=== PATIENT | male | born 1930 | race Caucasian/White ===

== ENCOUNTER 2017-12-02 12:52 | Inpatient (IN) | payer OTHER, MEDICARE ==
[~2017-12-02] VITALS: Ht 190.5 cm; Wt 89.0 kg
--- NOTE | ~2017-12-02 | H ---
[facility] [place] [address] HISTORY AND PHYSICAL Name: GRACIA MARROQUIN Room #: 213-P ADM IN M.R.#: [id number] Admission: 12/02/17 Attend Phys: Ethan Guevara Discharge: Date of : [birth year] Report #: [id number] THIS REPORT FOR: //name// CC: Yevgeniy Chun DATE OF SERVICE: 12/02/2017 CHIEF COMPLAINT: Leg swelling and blood in the urine. HISTORY OF PRESENT ILLNESS: The patient is an 87-year-old gentleman with prostate cancer, who was admitted for progressive swelling in the lower legs. He and his family report for the last 2 or 3 weeks, he had gradual worsening edema to the lower legs up to the thighs and involving his scrotum. He has had intermittent hematuria over the last couple of weeks as well. He does take Xarelto for atrial fibrillation and had skipped the last 3 days. He was due to have an outpatient urologic workup for his hematuria. His prostate cancer has been treated over the years with Casodex and Lupron injections. He has not received any radiation treatment nor had surgery; however, he has had concern for progressive disease and was seeing a medical oncologist for another opinion. However, he was unable to afford any other oral chemo agents. His last PSA that I saw through clinic notes in July was around 32, which had climbed from about 12 over the course of 2017. PAST MEDICAL HISTORY: Atrial fibrillation, chronic anticoagulation, prostate cancer, history of kidney stones, chronic congestive heart failure, Alzheimer disease, hypertension. Apparently, his prostate cancer was treated with seed implantation years ago as well. PAST SURGICAL HISTORY: Noncontributory. FAMILY HISTORY: Noncontributory. SOCIAL HISTORY: No chronic alcohol or tobacco use. He is and lives with his . ALLERGIES: MORPHINE AND PENICILLIN. MEDICATIONS: Folic acid, lactulose, potassium 10 mEq b.i.d., atenolol 25 mg daily, diltiazem 180 mg a day, torsemide 20 mg a day, Flomax 0.4 mg, Xarelto 15 mg, B12. REVIEW OF SYSTEMS: He denies headache, chest pain, shortness of breath, abdominal pain, nausea, vomiting, diarrhea, constipation, dysuria, syncope. OBJECTIVE: [address] [address] HISTORY AND PHYSICAL Name: GRACIA MARROQUIN Room #: 213-P [facility] IN M.R.#: [id number] Admission: 12/02/17 Attend Phys: Ethan Guevara Discharge: Date of : [birth year] Report #: [id number] VITAL SIGNS: Temperature 35.9, pulse 57, respirations 16, blood pressure 114/75, O2 sat 100% on room air. GENERAL: He is awake and alert, in no distress. LUNGS: Clear with no wheezing. HEART: Regular without murmur. ABDOMEN: Soft, normoactive bowel sounds. EXTREMITIES: He has 2+ edema up to the thighs, there is some scrotal swelling. NEUROLOGIC: Cranial nerves intact. He seems to recognize me. Global strength 3/5 throughout. LABORATORY DATA: Urinalysis was negative for blood. Hemoglobin 10, creatinine 2.4. BNP is 5400. TSH was 4.2. Doppler ultrasound of the legs was negative for DVT. ASSESSMENT: 1. Hematuria. 2. Lower extremity edema. 3. Prostate cancer. 4. Atrial fibrillation. 5. Chronic congestive heart failure. 6. Chronic kidney disease stage 4. 7. Anemia of chronic disease. 8. Alzheimer disease. PLAN: A CT of the abdomen has been requested to rule out any lymphadenopathy causing an obstructive pattern related to his cancer despite the elevated BNP, which may be related to his renal dysfunction. He does not look to be in overt pulmonary edema due to heart failure and an x-ray is pending. Diuretics will be administered for now. I will ask the Urology team, Dr. Hernandez to visit with him regarding the hematuria, but this is likely related to the tumor and concomitant use of anticoagulation, which will be a challenge going forward. <ELECTRONICALLY SIGNED> By: Faizan Garibay MD 12/03/17 1022 1621 1639 Faizan Garibay MD /nt
--- NOTE | ~2017-12-02 | HC ---
[facility] [place] [address] CONSULTATION Name: GRACIA MARROQUIN Room #: 213-P ADM IN M.R.#: [id number] Admission: 12/02/17 Attend Phys: Ethan Guevara Discharge: Date of : [birth year] Report #: [id number] THIS REPORT FOR: //name// CC: Yevgeniy Chun CHIEF COMPLAINT: Hematuria. HISTORY OF PRESENT ILLNESS: The patient is an 87-year-old gentleman, who is being seen today at the request Dr. Garibay, for evaluation and management of hematuria. Specifically, he does take Xarelto and upon review of the history, it is reported that he has had intermittent hematuria over the last couple of weeks. He denies flank pain, fever, chills or dysuria and the nurses report clear urine while here in the hospital. He does not provide a lot of meaningful history. PAST ILLNESSES: Atrial fibrillation, chronic anticoagulation; prostate cancer; kidney stones; congestive heart failure; Alzheimer's; hypertension. PAST SURGICAL HISTORY: Noncontributory. FAMILY HISTORY: Noncontributory. SOCIAL HISTORY: No chronic alcohol or tobacco abuse. He does live with his . ALLERGIES: MORPHINE and PENICILLIN. HOME MEDICATIONS: Include folic acid, potassium, atenolol, diltiazem, torsemide, Flomax, Xarelto, and B12. REVIEW OF SYSTEMS: He denies shortness of breath or chest pain. His prostate cancer has been treated with Casodex and Lupron. PHYSICAL EXAMINATION: GENERAL: He is a comfortable appearing gentleman, sitting up in bed. VITAL SIGNS: Temperature is 36.3, pulse 72, respirations 122/79. No respiratory distress. LABORATORY DATA: White count 3.7 thousand; hemoglobin 10.0; hematocrit 29.5; platelets 131,000. Sodium 141, potassium 4.1, chloride 107, BUN 10 and creatinine is 2.3. Urine is clear; yellow; specific gravity is 1.015; pH is 5; negative for protein, ketones, blood, nitrites or bilirubin; leukocyte esterase negative. CT abdomen and pelvis shows extensive pelvic retroperitoneal and retrocrural adenopathy, possible bladder wall thickening which is nonspecific. He has bilateral pleural effusions and seeds are identified within the prostate. IMPRESSION: [facility] [address] [address] CONSULTATION Name: GRACIA MARROQUIN Room #: 213-P ADM IN M.R.#: [id number] Admission: 12/02/17 Attend Phys: Ethan Guevara Discharge: Date of : [birth year] Report #: [id number] 1. Hematuria, which is probably from a combination of chronic anticoagulation and prior radiation. 2. Advanced prostate cancer with adenopathy and a PSA of 66. PLAN: 1. Regarding the hematuria, I recommend outpatient followup for cystoscopy. This does not appear to be an acute problem at the present time. 2. I recommend Medical Oncology review given his apparent advanced prostate cancer and I will defer to Medical Oncology for this. <ELECTRONICALLY SIGNED> By: Faizan Mcpherson MD 12/04/17 0645 0748 0816 Faizan Mcpherson MD /nt
--- NOTE | ~2017-12-02 | CNG ---
[facility] [place] [address] CYTO-NONGYN REPORT PROCEDURE Name: LOPEZGRACIA Room #: 213-P ADM IN M.R.#: [id number] Admission: 12/02/17 Date of : [birth year] Discharge: Report #: [id number] Path Case #: [id number] CYTOPATHOLOGY REPORT COLLECTION DATE: 12/03/2017 RECEIVED DATE: 12/03/2017 SUBMITTING PHYS: Dr. Yevgeniy Chun OTHER PHYS: CLINICAL HISTORY: CHF, CKD SPECIMEN(S) RECEIVED: A.Pleural fluid * * * * * * * * * * * * FINAL DIAGNOSIS: A. Pleural fluid: - No malignant cells identified. Reactive mesothelial cells are present along with macrophages and inflammatory cells. PATHOLOGIST: Sara Correa M.D. REPORT ELECTRONICALLY SIGNED BY: Sara Correa M.D. DATE/TIME: 12/04/2017 13:16 * * * * * * * * * * * * GROSS PATHOLOGY: A. Pleural fluid: The specimen is submitted unfixed, labeled "Gracia Marroquin". Received by the Cytology Department is 30 mL of cloudy red fluid. One ThinPrep slide and a formalin fixed cell block were prepared. (lg.) PRESERVATIVE FILLER MACHINE OPERATOR(S): BLANCA Khan(ASCP) INITIAL CPT CODE(S): A; 92135, 88219 Professional services performed by [facility] at [facility] [address], [place] [address] Technical services performed by [facility] at [address] [place] [address]., [address], [place] [address]. [facility] [address] [place] [address], [address] [place] [address] PHONE: [phone] [facility] [address] [place] [address] CYTO-NONGYN REPORT PROCEDURE Name: GRACIA MARROQUIN Room #: 213-P ADM IN M.R.#: [id number] Admission: 12/02/17 Date of : [birth year] Discharge: Report #: [id number] Path Case #: [id number] DIRECTOR: Andrea Ortiz M.D. * * * END OF REPORT * * *
--- NOTE | ~2017-12-02 | D ---
[facility] [place] [address] DISCHARGE SUMMARY Name: GRACIA MARROQUIN Room #: 213-P [facility] IN M.R.#: [id number] Admission: 12/02/17 Attend Phys: Ethan Guevara Discharge: 12/05/17 Date of : [birth year] Report #: [id number] THIS REPORT FOR: //name// CC: Yevgeniy Chun FINAL DIAGNOSES: 1. Metastatic prostate cancer. 2. 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 3. Atrial fibrillation. 4. Hematuria. 5. Chronic kidney disease, stage 3. 6. Senile dementia. HOSPITAL COURSE: The patient was admitted from home with lower extremity edema. He was negative for DVT and CT of the abdomen and pelvis revealed extensive pelvic lymph node disease. I felt this was likely the source contributing to his lower extremity edema. Also noted to have a left pleural effusion, which was tapped 1500 mL. Cytology was negative for malignancy. Dr. Schrader saw him in consultation. His PSA was noted to be 66, which is up from the last documented when I saw from the office, which was in the 30s. At this point, he is recommended that he follow up with his main oncologist and begin additional oral agent and to look into patient assistance for the expense. He reported hematuria from home and Dr. Gao saw him in consultation. He recommended outpatient cystoscopy. PHYSICAL EXAMINATION: GENERAL: On the day of discharge, he was awake and alert, lying in bed, in no distress. LUNGS: Clear. HEART: Irregular. ABDOMEN: Soft, normoactive bowel sounds. EXTREMITIES: 2+ edema. All of his usual home medications were resumed. DISPOSITION: He will be discharged to home with home health. Diet and activity as tolerated. Elevate legs. Follow up with his oncologist and urologist as directed. He will resume all usual home medications. BMP in 1 week. <ELECTRONICALLY SIGNED> By: Faizan Garibay MD 12/05/17 1630 0918 1053 Faizan Garibay MD /nt
--- NOTE | ~2017-12-02 | HC ---
[facility] [place] [address] CONSULTATION Name: GRACIA MARROQUIN Room #: 213-P [facility] IN M.R.#: [id number] Admission: 12/02/17 Attend Phys: Ethan Guevara Discharge: 12/05/17 Date of : [birth year] Report #: [id number] THIS REPORT FOR: //name// CC: Yevgeniy Chun DATE OF SERVICE: 12/04/2017 HISTORY OF PRESENT ILLNESS: This patient is seen at the request of Dr. Garibay regarding an antecedent diagnosis of known metastatic adenocarcinoma of the prostate. He was readmitted to [facility] with findings of increasing edema along with hematuria and has been seen in consultation by Dr. Mcpherson. He currently has been receiving Casodex and Lupron injections through his radiation therapist, Dr. Yoel Mckeon. Both he and his were unfortunately poor historians due to their age and/or dementia. I was able to obtain an accurate history from Dr. Mckeon regarding his cancer diagnosis, which dated to 2001 when he underwent brachytherapy. He subsequently had a biochemical recurrence in 2010 receiving androgen blockade and then was monitored. By 2012, his PSA was rising and androgen deprivation was reinstituted. He was seen by Dr. Vieyra at [facility] Oncology consultation a year ago. He discussed a change in his therapy. Nothing subsequently transpired. 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 He unfortunately did not fill this prescription because of a $4000 copay. He was seen back by 's nurse practitioner on 08/11/2017 when his daughter was also present and other options for therapy were discussed, which have not been pursued. PAST MEDICAL HISTORY: Significant for previous bowel resection in 1974. He is on Xarelto with chronic atrial fibrillation and has had prior DVT of the right leg and forearm and history of pulmonary embolism. He has medically managed, hypertension, dementia, cardiomyopathy with chronic systolic heart failure, hyperlipidemia and stage 3 chronic kidney disease. MEDICATIONS: Are as listed on his MFR. ALLERGIES: HE IS ALLERGIC TO MORPHINE AND PENICILLIN. REVIEW OF SYSTEMS: As in his history of present illness and positive for recent hematuria along with worsening edema and shortness of breath. He has generalized weakness and incredibly poor memory. SOCIAL HISTORY: He is and lives with his in [place]. He is an occasional social drinker and does not smoke. FAMILY HISTORY: Not contributory. [facility] [address] [place] [address] CONSULTATION Name: GRACIA MARROQUIN Room #: 213-P [facility] IN ..#: [id number] Admission: 12/02/17 Attend Phys: Ethan Guevara Discharge: 12/05/17 Date of : [birth year] Report #: [id number] PHYSICAL EXAMINATION: GENERAL: Shows a pleasant, alert white male. HEENT: Shows multiple prior basal cell carcinomas and also actinic change. NECK: Supple. CHEST: Clear. CARDIOVASCULAR: Showed distant heart tones with irregular pulse. ABDOMEN: Shows no palpable spleen. EXTREMITIES: Show edema. SKIN: Shows scattered areas of bruising. NEUROLOGIC: No focal localizing signs. PSYCHIATRIC: He is confused and has a poor memory. LABORATORY DATA: Shows elevated PSA. His CAT scan shows extensive retroperitoneal adenopathy. ASSESSMENT: Progressive/metastatic adenocarcinoma of the prostate. I have discussed the situation with the patient's and daughter present that he has hormone refractory prostate cancer and is progressive disease in spite of LHRH antagonist therapy along with androgen deprivation with Casodex. The earlier prescribed Zytiga was never filled and would be an appropriate therapy for him. Because of their financial means, he does not qualify for patient assistance through the pharmaceutical [employer], but was a former [employer] and might be able to get medications through the [facility], but has never been a patient there. I have encouraged him to go ahead and try to fill this as he now has Medicare Part D since the beginning of the calendar year as it is likely that his cancer might respond and improve his current scenario. Thanks for allowing me to see him with you in consultation and allowing me to participate in his care. <ELECTRONICALLY SIGNED> By: Mariaa Schrader MD 12/08/17 1206 2224 0144 Mariaa Schrader MD /nt
[~2017-12-02 12:52] MED LIST: ALLOPURINOL 30300 M1 PO; AMBEREN; ASPIR 8181 MG PO; ATENOLOL 100MG100 MG PO; ATENOLOL 25MG T25 M1 PO; ATENOLOL 50 MG50 M1 PO; ATENOLOL 50MG T50 M1 PO; BACTRIM DS TAB1 EACH PO; CASODEX 50 MG T50 M1 PO; CENTRUM SILVER1 EAC4 PO; COUMADIN 5 MG TA5 M1 PO; DEMADEX20 MG PO; DILTIAZEM 24HR180 M1 PO; FISH OIL 1,0001 EAC5 PO; FISHOIL; FOLIC ACID1 MG PO; FUROSEMIDE 40 M40 M1 PO; KLOR-CON 1010 MEQ PO; LASIX 40 MG TAB40 M2 PO; LISINOPRIL10 MG PO; PERCOCET 5-3251 EACH PO; POTASSIUM; POTASSIUM GLUC500 MG PO; RAPAFLO4 MG PO; RAPAFLO8 MG PO; TAMSULOSIN HCL0.4 MG PO; TORSEMIDE20 MG PO; VITAMIN B12-FO1 EAC1 PO; VITAMIN D-32000 UNIT PO; XARELTO15 MG PO; ZOCOR 20 MG TAB20 M1 PO; ZOFRAN ODT4 MG PO
[2017-12-02 15:04] LABS: HEMATOCRIT 31.1 % (42.0-52.0); HEMOGLOBIN 10.5 gm/dL (14.0-18.0); MCH 31.8 pg (26.0-34.0); MCHC 33.9 g/dL (28.0-37.0); RBC 3.31 mil/uL (4.50-6.00); RDW 13.6 % (10.5-14.5); WBC 4.2 thou/uL (4.0-11.0)
[2017-12-02 15:20] VITALS: BP 114/75
[2017-12-02 15:21] LABS: ANION GAP 8 mmol/L (7-16); CHLORIDE 109 mmol/L (98-107); CO2 25 mmol/L (21-32); POTASSIUM 4.2 mmol/L (3.5-5.1); SGOT 22 U/L (15-37); SODIUM 142 mmol/L (136-145); TOTAL BILIRUBIN 0.5 mg/dL (<0.1-1.0); TOTAL PROTEIN 6.9 g/dL (6.4-8.2); TROPONIN-I < 0.04 ng/mL (<0.06)
[2017-12-02 15:30] LABS: ALBUMIN 3.7 g/dL (3.4-5.0); BUN 44 mg/dL (7-18); CALCIUM 8.8 mg/dL (8.5-10.1); CREATININE 2.4 mg/dL (0.7-1.3); GLUCOSE 109 mg/dL (74-106); SGPT 16 U/L (30-65)
[2017-12-02 16:16] LABS: URINE BILIRUBIN NEGATIVE (Negative); URINE BLOOD NEGATIVE (Negative); URINE CLARITY CLEAR; URINE COLOR YELLOW; URINE GLUCOSE-RANDOM* NEGATIVE (Negative); URINE KETONES NEGATIVE (Negative); URINE LEUKOCYTES NEGATIVE (Negative); URINE NITRITE NEGATIVE (Negative); URINE PROTEIN (DIPSTICK) NEGATIVE (Negative); URINE SPECIFIC GRAVITY 1.015 (1.005-1.035); URINE UROBILINOGEN 0.2 E.U./dl (0.2-1.0)
[2017-12-02 19:15] VITALS: BP 107/57
[2017-12-02 23:27] VITALS: BP 117/84
[2017-12-03 03:34] VITALS: BP 112/73
[2017-12-03 04:26] LABS: HEMATOCRIT 29.5 % (42.0-52.0); MCH 31.7 pg (26.0-34.0); MCHC 33.9 g/dL (28.0-37.0); MCV 93.6 fL (80.0-100.0); RBC 3.15 mil/uL (4.50-6.00); RDW 13.6 % (10.5-14.5); WBC 3.7 thou/uL (4.0-11.0)
[2017-12-03 04:40] LABS: CALCIUM 8.6 mg/dL (8.5-10.1); CREATININE 2.3 mg/dL (0.7-1.3); POTASSIUM 4.1 mmol/L (3.5-5.1)
[2017-12-03 07:23] VITALS: BP 122/79
[2017-12-03 11:13] LABS: PROTIME 10.6 Seconds (9.3-11.4)
[2017-12-03 11:46] VITALS: BP 113/69
[2017-12-03 15:20] LABS: CLARITY CLOUDY; COLOR RED; SOURCE LEFT CHEST; TOTAL VOLUME 60 mL
[2017-12-03 15:31] LABS: BF NUCLEATED CELLS 224; BF RBC 18587
[2017-12-03 15:50] VITALS: BP 90/56
[2017-12-03 16:00] LABS: BF MACROPHAGE 35; BF NEUTROPHILS 6
[2017-12-03 19:50] VITALS: BP 99/55
[2017-12-04 03:41] LABS: HEMATOCRIT 29.5 % (42.0-52.0); HEMOGLOBIN 9.9 gm/dL (14.0-18.0); MCH 31.4 pg (26.0-34.0); MCHC 33.6 g/dL (28.0-37.0); MCV 93.7 fL (80.0-100.0); RBC 3.15 mil/uL (4.50-6.00); RDW 13.8 % (10.5-14.5)
[2017-12-04 03:52] LABS: CALCIUM 8.8 mg/dL (8.5-10.1); CREATININE 2.1 mg/dL (0.7-1.3); POTASSIUM 3.9 mmol/L (3.5-5.1)
[2017-12-04 04:45] VITALS: BP 108/69
[2017-12-04 06:13] LABS: TESTOSTERONE* < 3 ng/dL (264-916)
[2017-12-04 07:31] VITALS: BP 131/86
[2017-12-04 08:46] LABS: SOURCE CHEST
[2017-12-04 15:32] VITALS: BP 98/69
[2017-12-04 17:09] LABS: BODY FLUID ALBUMIN 2.1 g/dL (()); BODY FLUID AMYLASE 12 U/L (()); BODY FLUID GLUCOSE 144 mg/dL (()); BODY FLUID LDH 79 IU/L (()); BODY FLUID PROTEIN 2.9 g/dL (())
[2017-12-04 19:50] VITALS: BP 110/71
[2017-12-05 04:50] VITALS: BP 114/81
[2017-12-05 07:24] VITALS: BP 107/73
[2017-12-05] MEDS ORDERED: KLOR-CON 1010 MEQ PO (09:06)
[2017-12-05] MEDS ORDERED: DEMADEX20 MG PO (09:06)
[2017-12-05 10:16] VITALS: BP 107/73
[2017-12-05 10:32] VITALS: BP 107/73
== END 2017-12-05 11:32 | disposition home health service (06) | DRG 723 ==
LOC: 2N 12:52 → ENTRNSPT 12-05 10:51 → EDTRNSPTSTS 12-05 10:58 → 2N 12-05 11:32
PROVIDERS: Internal Medicine; Internal Medicine Geriatric Medicine; Internal Medicine Hematology & Oncology
PROC: 0W9B3ZX Drainage of Left Pleural Cavity, Percutaneous Approach, Diagnostic (ICD-10-PCS; principal; 2017-12-03)
DX: C61 Malignant neoplasm of prostate (principal); I42.9 Cardiomyopathy, unspecified; N18.4 Chronic kidney disease, stage 4 (severe); I50.22 Chronic systolic (congestive) heart failure; I13.0 Hypertensive heart and chronic kidney disease with heart failure and stage 1 through stage 4 chronic kidney disease, or unspecified chronic kidney disease; I48.91 Unspecified atrial fibrillation; G30.9 Alzheimer's disease, unspecified; F02.80 Dementia in other diseases classified elsewhere, unspecified severity, without behavioral disturbance, psychotic disturbance, mood disturbance, and anxiety; I48.2 Chronic atrial fibrillation; I89.0 Lymphedema, not elsewhere classified; D63.8 Anemia in other chronic diseases classified elsewhere; Z86.711 Personal history of pulmonary embolism; Z79.01 Long term (current) use of anticoagulants; Z85.46 Personal history of malignant neoplasm of prostate; Z87.442 Personal history of urinary calculi; Z88.6 Allergy status to analgesic agent; Z88.0 Allergy status to penicillin; Z86.718 Personal history of other venous thrombosis and embolism; Z79.899 Other long term (current) drug therapy
CPT/HCPCS: 10797

== ENCOUNTER → 2017-12-31 | Outpatient (CLI) | payer OTHER, MEDICARE | LOC: RAD 14:49 | DX: I50.9 Heart failure, unspecified (principal); J90 Pleural effusion, not elsewhere classified ==

== ENCOUNTER 2018-02-22 11:38 | Inpatient (IN) | payer OTHER, MEDICARE ==
[~2018-02-22] VITALS: Ht 182.9 cm; Wt 88.5 kg
--- NOTE | ~2018-02-22 | D ---
[facility] [place] [address] DISCHARGE SUMMARY Name: GRACIA MARROQUIN Room #: 461-P [facility] IN M.R.#: [id number] Admission: 02/22/18 Attend Phys: Ethan Guevara Discharge: 02/25/18 Date of : [birth year] Report #: [id number] THIS REPORT FOR: //name// CC: Yevgeniy Chun FINAL DIAGNOSES: 1. Urinary tract infection. 2. Acute on chronic congestive heart failure. 3. Chronic kidney disease, stage 3. 4. Metastatic prostate cancer. 5. Anemia of chronic disease. 6. Atrial fibrillation. 7. Lymphedema. 8. Senile dementia. 9. Senile debility. HOSPITAL COURSE: The patient was admitted after a fall at home. X-rays were negative for fracture. Urinalysis was suspicious for infection; however, blood cultures were negative during his stay, and urine culture was still pending at the time of discharge. He was treated empirically with antibiotics and supportive measures. He complained of shortness of breath, and x-ray was obtained showing congestive heart failure. IV fluids from the ER had been discontinued. His regular diuretics were resumed. He received an additional dose of Lasix. Physical Therapy was consulted. He was still very weak and working as well as he could with therapy. I spoke to his family and recommended intermediate rehab. PHYSICAL EXAMINATION: On the day of admission. GENERAL: He was awake and alert, sitting up in a chair. He was slightly confused at his baseline. VITAL SIGNS: Temperature 36.3, pulse 86, respirations 18, blood pressure 122/84 and O2 sat ranging 92-100% on room air. LUNGS: Clear. HEART: Irregular. ABDOMEN: Soft, normoactive bowel sounds. EXTREMITIES: 1-2+ edema. DISPOSITION: He will be discharged to [facility]. I will follow his stay there. I signed his transfer medications. He will continue a short course of oral antibiotics. <ELECTRONICALLY SIGNED> By: Faizan Garibay MD 02/27/18 1202 0834 0922 Faizan Garibay MD /nt
--- NOTE | ~2018-02-22 | EKG ---
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 THOMPSON : 1930 Requested By: Rosy Palumbo Order Number: [id number] MD: Tam Edwards Measurements Intervals [place] Rate: 109 P: SC: QRS: -55 QRSD: 119 T: 55 QT: 360 QTc: 485 Interpretive Statements Atrial fibrillation Left anterior fascicular block Compared to ECG 05/07/2016 21:18:50 Left ventricular hypertrophy no longer present Electronically Signed On 02-23-2018 17:00:59 CDT by Tam Edwards [email or web address] <ELECTRONICALLY SIGNED> By: Tam Edwards MD, [facility] 02/23/18 1700 1146 1146 Tam Edwadrs MD, [facility] /EPI
--- NOTE | ~2018-02-22 | H ---
[facility] [place] [address] HISTORY AND PHYSICAL Name: GRACIA MARROQUIN Room #: 461-P ADM IN M.R.#: [id number] Admission: 02/22/18 Attend Phys: Ethan Guevara Discharge: Date of : [birth year] Report #: [id number] THIS REPORT FOR: //name// CC: Yevgeniy Chun CHIEF COMPLAINT: Weakness and fall. HISTORY OF PRESENT ILLNESS: The patient is an 87-year-old gentleman with multiple medical problems who was admitted through the Emergency Room after sustaining a fall at home. His said he was standing in the kitchen sorting out his pills, it appears he just either became weak or lost his balance and sort of fell over backwards onto his coccyx and then down to the floor. He did not have loss of consciousness and denied any preceding symptoms of dizziness or lightheadedness. His was unable to get him up and therefore called EMS who brought him to the Emergency Room. Initial evaluation suggested a urinary tract infection. X-rays did not reveal any acute fractures. PAST MEDICAL HISTORY: Atrial fibrillation, hypertension, cardiomyopathy, dementia, chronic kidney disease stage 3-4. There is a mention of a history of PE. He also has a history of prostate cancer and lymphedema with suggestion on CT in November of this year of pelvic lymphadenopathy. He has also had a history of DVT in the right leg. PAST SURGICAL HISTORY: Noncontributory. FAMILY HISTORY: Unknown. SOCIAL HISTORY: He is , lives at home with his . No chronic alcohol or tobacco use. ALLERGIES: MORPHINE AND PENICILLIN. MEDICATIONS: Xtandi, Casodex, folic acid, Xarelto, diltiazem, Tenormin, vitamin D, Demadex, potassium. REVIEW OF SYSTEMS: He just complains of feeling weak. Otherwise, no headache, chest pain, shortness of breath, abdominal pain, nausea, vomiting, diarrhea, constipation, or dysuria. OBJECTIVE: VITAL SIGNS: Temperature 34.6, pulse 97, respirations 16, blood pressure 126/83, O2 sat 94% on room air. GENERAL: He is awake and alert, sitting up in bed in no distress. LUNGS: Clear. HEART: Regular. ABDOMEN: Soft, normoactive bowel sounds. EXTREMITIES: 2+ edema. [address] [address] HISTORY AND PHYSICAL Name: GRACIA MARROQUIN Room #: 461- ADM IN M.R.#: [id number] Admission: 02/22/18 Attend Phys: Ethan Guevara Discharge: Date of : [birth year] Report #: [id number] NEUROLOGIC: Motor strength 3/5 throughout. LABORATORY DATA: Creatinine is 2.2. White count was 5. Urine culture is pending. ASSESSMENT: 1. Urinary tract infection. 2. Chronic kidney disease stage 3. 3. Prostate cancer. 4. Atrial fibrillation. 5. Chronic anticoagulation with Xarelto. 6. Senile debility. PLAN: Supportive measures have been entered for now including IV fluids that he received overnight. I will resume the ceftriaxone pending his urine culture. Physical and occupational therapy has been consulted and we will ask social work to confer with he and his . He may need skilled rehab. <ELECTRONICALLY SIGNED> By: Faizan Garibay MD 02/24/18 0946 1344 1400 Faizan Garibay MD /nt
[2018-02-22 11:38] VITALS: BP 105/68
[2018-02-22 11:53] LABS: ABSOLUTE NEUTROPHILS 3.2 thou/uL (1.4-8.2); BASOPHILS 1.2 % (0.0-2.0); EOSINOPHILS 0.5 % (0.0-3.0); HEMATOCRIT 28.2 % (42.0-52.0); HEMOGLOBIN 9.8 gm/dL (14.0-18.0); LYMPHOCYTES 12.5 % (24.0-44.0); MCH 31.5 pg (26.0-34.0); MCHC 34.9 g/dL (28.0-37.0); MCV 90.3 fL (80.0-100.0); MONOCYTES 6.5 % (1.0-8.0); PLATELET COUNT 153 thou/uL (150-400); POLYS 79.3 % (36.0-66.0); RBC 3.13 mil/uL (4.50-6.00); RDW 14.3 % (10.5-14.5)
[2018-02-22 12:03] LABS: CALCIUM 8.9 mg/dL (8.5-10.1); CREATININE 2.5 mg/dL (0.7-1.3); POTASSIUM 4.4 mmol/L (3.5-5.1)
[2018-02-22 12:05] LABS: INR 1.1
[2018-02-22 12:08] LABS: ALBUMIN 3.4 g/dL (3.4-5.0); TOTAL BILIRUBIN 0.6 mg/dL (<0.1-1.0); TOTAL PROTEIN 6.6 g/dL (6.4-8.2)
[2018-02-22 13:27] LABS: URINE BLOOD 3+ (Negative); URINE CLARITY CLOUDY; URINE COLOR YELLOW; URINE GLUCOSE-RANDOM* TRACE (Negative); URINE KETONES NEGATIVE (Negative); URINE PROTEIN (DIPSTICK) 3+ (Negative); URINE SPECIFIC GRAVITY 1.025 (1.005-1.035)
[2018-02-22 13:32] LABS: URINE LEUKOCYTES-REFLEX 3+ (Negative); URINE NITRITE-REFLEX POSITIVE (Negative)
[2018-02-22 13:33] LABS: ICTOTEST (BILI CONFIRMATORY) Negative (Negative); URINE BILIRUBIN NEGATIVE (Negative)
[2018-02-22 13:37] LABS: CASTS None Seen /LPF (None Seen); CRYSTALS None Seen /LPF (None Seen); SQUAMOUS None Seen /LPF (0-3); URINE WBC-REFLEX >25 Many /HPF (0-5)
[2018-02-22 14:24] VITALS: BP 114/80
[2018-02-22 15:14] VITALS: BP 129/81
[2018-02-22] MEDS ORDERED: XTANDI40 MG PO (16:43)
[2018-02-22 16:45] VITALS: BP 101/67
[2018-02-22 19:09] VITALS: BP 109/69
[2018-02-23 00:07] VITALS: BP 103/74
[2018-02-23 03:19] VITALS: BP 129/71
[2018-02-23 06:07] LABS: HEMATOCRIT 28.9 % (42.0-52.0); MCH 31.1 pg (26.0-34.0); MCHC 34.5 g/dL (28.0-37.0); MCV 90.4 fL (80.0-100.0); RBC 3.2 mil/uL (4.50-6.00); RDW 14.2 % (10.5-14.5); WBC 5.3 thou/uL (4.0-11.0)
[2018-02-23 06:22] LABS: CALCIUM 8.4 mg/dL (8.5-10.1); CREATININE 2.2 mg/dL (0.7-1.3); POTASSIUM 4.3 mmol/L (3.5-5.1)
[2018-02-23 09:18] VITALS: BP 121/64
[2018-02-23 09:20] VITALS: BP 126/83
[2018-02-23 19:15] VITALS: BP 125/83
[2018-02-24 04:19] VITALS: BP 116/78
[2018-02-24 04:28] LABS: CALCIUM 8.4 mg/dL (8.5-10.1); CREATININE 1.9 mg/dL (0.7-1.3); POTASSIUM 4.3 mmol/L (3.5-5.1)
[2018-02-24 07:38] VITALS: BP 136/95
[2018-02-24 19:32] VITALS: BP 121/88
[2018-02-25 03:45] VITALS: BP 124/91
[2018-02-25 07:45] VITALS: BP 122/84
[2018-02-25] MEDS ORDERED: KLOR-CON 1010 MEQ PO (08:28)
[2018-02-25] MEDS ORDERED: BACITRACIN ZIN120 GM TOP (08:28)
[2018-02-25] MEDS ORDERED: DEMADEX20 MG PO (08:28)
[2018-02-25] MEDS ORDERED: CEFUROXIME250 MG PO (08:35)
== END 2018-02-25 13:30 | DRG 682 ==
LOC: ER 11:38 → 4W 13:53 → EROBS 13:53 → 4W 16:27
PROVIDERS: Internal Medicine Geriatric Medicine; Physician Assistant
DX: N17.9 Acute kidney failure, unspecified (principal); I50.23 Acute on chronic systolic (congestive) heart failure; N39.0 Urinary tract infection, site not specified; I42.9 Cardiomyopathy, unspecified; I50.22 Chronic systolic (congestive) heart failure; I13.0 Hypertensive heart and chronic kidney disease with heart failure and stage 1 through stage 4 chronic kidney disease, or unspecified chronic kidney disease; N18.4 Chronic kidney disease, stage 4 (severe); I48.2 Chronic atrial fibrillation; F03.90 Unspecified dementia, unspecified severity, without behavioral disturbance, psychotic disturbance, mood disturbance, and anxiety; E78.5 Hyperlipidemia, unspecified; D63.8 Anemia in other chronic diseases classified elsewhere; S51.012A Laceration without foreign body of left elbow, initial encounter; W17.89XA Other fall from one level to another, initial encounter; Y93.89 Activity, other specified; Y92.000 Kitchen of unspecified non-institutional (private) residence as the place of occurrence of the external cause; Y99.8 Other external cause status; Z85.46 Personal history of malignant neoplasm of prostate; Z86.718 Personal history of other venous thrombosis and embolism; Z86.711 Personal history of pulmonary embolism; Z79.01 Long term (current) use of anticoagulants; Z79.899 Other long term (current) drug therapy; Z88.0 Allergy status to penicillin; Z88.5 Allergy status to narcotic agent
CPT/HCPCS: 10045